=== PATIENT | female | born 2000 | race Asian ===

== ENCOUNTER 2019-05-13 08:38 | Outpatient (CLI) | payer OTHER ==
[2019-05-13] MEDS ORDERED: ALBU18HF INH (09:06)
[2019-05-13] MEDS ORDERED: FLUT9.9S NS (09:06)
[2019-05-13] MEDS ORDERED: [UNRECOGNIZED DRUG - CODE] PO (09:06)
[2019-05-13] MEDS ORDERED: allergy shot INJ (09:06)
[2019-05-13] MEDS ORDERED: ASCO250T3 PO (09:06)
[2019-05-13] MEDS ORDERED: ACYC-114 PO (09:06)
== END 2019-05-13 23:59 | disposition home or self-care (01) ==
LOC: STAR 08:38
PROVIDERS: ATTEND Specialist
DX: Z02.9 Encounter for administrative examinations, unspecified (principal)

== ENCOUNTER 2019-05-19 06:57 | Day surgery (SDC) | payer OTHER ==
[~2019-05-19] VITALS: Ht 163.8 cm; Wt 63.6 kg
[~2019-05-19 06:57] MED LIST: ACYC-114 PO; ALBU18HF INH; ASCO250T3 PO; BUPIVACAINE/PF 0.5% ONE; EPINEPHRINE 1 MG/ML, 1ML ONE; FLUT9.9S NS; MUPIROCIN OINT 2%, 22GM ONE; PHENYLEPHRINE NASAL 0.25%, 15ML SPRAY ONE; PHENYLEPHRINE NASAL 0.5%, 15ML SPRAY ONE; [UNRECOGNIZED DRUG - CODE] PO; allergy shot INJ
[2019-05-19] MEDS ORDERED: LACTATED RINGERS 1,000 ML IV SCH (07:19)
[2019-05-19] MEDS ORDERED: LIDOCAINE-MPF 1%, 2ML ONE (07:22)
[2019-05-19] MEDS ORDERED: LIDOCAINE-MPF 1%, 2ML INFIL ONE (07:30)
[2019-05-19] MEDS ORDERED: MIDAZOLAM 1 MG/ML, 2ML ONE (07:32)
[2019-05-19] MEDS ORDERED: FENTANYL PF 250 MCG/5ML ONE (07:33)
[2019-05-19 07:47] LABS: HCG UR SG 1.023 (1.003-1.030)
[2019-05-19] MEDS ORDERED: SUCCINYLCHOLINE 20 MG/ML, 10ML ONE (09:02)
[2019-05-19] MEDS ORDERED: PROPOFOL 10 MG/ML, 20ML ONE (09:02)
[2019-05-19] MEDS ORDERED: GLYCOPYRROLATE 0.2MG/1ML, 5ML ONE (09:02)
[2019-05-19] MEDS ORDERED: DEXAMETHASONE 4 MG/ML, 1ML ONE (09:02)
[2019-05-19] MEDS ORDERED: ROCURONIUM 10MG/ML,5ML ONE (09:02)
[2019-05-19] MEDS ORDERED: NEOSTIGMINE 1 MG/ML, 10ML ONE (09:02)
[2019-05-19] MEDS ORDERED: CEFAZOLIN 1,000 MG ONE (09:02)
[2019-05-19] MEDS ORDERED: LABETALOL 5MG/ML, 20ML IV PRN (10:00)
[2019-05-19] MEDS ORDERED: ALBUTEROL SULFATE 2.5 MG/3 ML NPPB PRN (10:00)
[2019-05-19] MEDS ORDERED: MEPERIDINE/PF 25MG/0.5ML IVPush PRN (10:00)
[2019-05-19] MEDS ORDERED: HYDROmorphone 1 MG/ML, 1ML INJ IV PRN (10:00)
[2019-05-19] MEDS ORDERED: ONDANSETRON 2MG/ML, 2ML IVPush PRN (10:00)
[2019-05-19] MEDS ORDERED: hydrALAzine 20 MG/ML, 1ML IV PRN (10:00)
[2019-05-19] MEDS ORDERED: KETOROLAC 30 MG/1 ML IV PRN (10:00)
[2019-05-19] MEDS ORDERED: OXYcodone 5 MG/5 ML ORAL.SOL UDC PO PRN (10:00)
[2019-05-19] MEDS ORDERED: PROMETHAZINE 25 MG/ML, 1ML IV PRN (10:00)
[2019-05-19] MEDS ORDERED: FENTANYL PF 100 MCG/2ML IV PRN (10:00)
[2019-05-19] MEDS ORDERED: METOCLOPRAMIDE 5 MG/ML, 2ML IV PRN (10:00)
[2019-05-19] MEDS ORDERED: ACETAMINOPHEN 650 MG/20.3 ML UDC ONE (10:02)
[2019-05-19] MEDS ORDERED: MEPERIDINE/PF 25MG/ML,1ML ONE (10:03)
[2019-05-19] MEDS ORDERED: OXYcodone 5 MG/5 ML ORAL.SOL UDC ONE (10:36)
[2019-05-19] MEDS ORDERED: ACETAMINOPHEN 650 MG/20.3 ML UDC PO PRN (11:00)
== END 2019-05-19 13:10 | disposition home or self-care (01) ==
LOC: OUT 06:57
PROVIDERS: ATTEND Specialist
DX: J03.91 Acute recurrent tonsillitis, unspecified (principal); J35.01 Chronic tonsillitis; J35.8 Other chronic diseases of tonsils and adenoids; Z88.0 Allergy status to penicillin
CPT/HCPCS: 42826; 81025; 88300; J0171; J0330; J0690; J1100; J2175; J2250; J2704; J2710; J3010; J7120

== ENCOUNTER → 2021-05-23 | Outpatient (CLI) | payer OTHER ==
[~2021-05-23] MED LIST changes: -ACYC-114 PO; +ACYC-40 PO; +ASCO250T13 PO; -ASCO250T3 PO; -BUPIVACAINE/PF 0.5% ONE; -EPINEPHRINE 1 MG/ML, 1ML ONE; -MUPIROCIN OINT 2%, 22GM ONE; -PHENYLEPHRINE NASAL 0.25%, 15ML SPRAY ONE; -PHENYLEPHRINE NASAL 0.5%, 15ML SPRAY ONE
== END | disposition home or self-care (01) ==
LOC: RAD 13:01
PROVIDERS: ATTEND Chiropractor
DX: M41.85 Other forms of scoliosis, thoracolumbar region (principal); M99.01 Segmental and somatic dysfunction of cervical region; M99.02 Segmental and somatic dysfunction of thoracic region; M99.03 Segmental and somatic dysfunction of lumbar region; M99.04 Segmental and somatic dysfunction of sacral region
CPT/HCPCS: 72040; 72072; 72100; 72170